=== PATIENT | male | born 1995 | race Caucasian/White ===

== ENCOUNTER → 2023-12-07 | Outpatient (CLI) | payer OTHER | LOC: M LAB 11:21 | PROVIDERS: ATTEND Nurse Practitioner Family | DX: K59.00 Constipation, unspecified (principal) ==

== ENCOUNTER 2024-02-24 09:50 | Day surgery (SDC) | payer OTHER ==
[~2024-02-24] VITALS: Ht 185.4 cm; Wt 97.1 kg
[2024-02-24] MEDS ORDERED: propofoL 200 MG/20 ML VIAL As Ordered ONE (11:04)
[2024-02-24 11:28] VITALS: TEMP 97.6
[2024-02-24 11:45] VITALS: BP 119/72; O2SAT 98
== END 2024-02-24 11:48 | disposition home or self-care (01) ==
LOC: M OPP 09:50
PROVIDERS: ATTEND Internal Medicine Gastroenterology
DX: K58.1 Irritable bowel syndrome with constipation (principal); Z12.11 Encounter for screening for malignant neoplasm of colon

== ENCOUNTER 2024-03-02 09:37 | Day surgery (SDC) | payer OTHER ==
[~2024-03-02] VITALS: Ht 185.4 cm; Wt 97.3 kg
[2024-03-02] MEDS ORDERED: propofoL 200 MG/20 ML VIAL As Ordered ONE (10:37)
[2024-03-02] MEDS ORDERED: LIDOCAINE 2% 100MG/5ML SDV (FOR ANES.) As Ordered ONE (10:37)
[2024-03-02 11:24] VITALS: TEMP 97.6
[2024-03-02 11:47] VITALS: BP 117/59; O2SAT 100
== END 2024-03-02 11:49 | disposition home or self-care (01) ==
LOC: M OPP 09:37
PROVIDERS: ATTEND Internal Medicine Gastroenterology
DX: Q43.8 Other specified congenital malformations of intestine (principal); K59.00 Constipation, unspecified; Z79.899 Other long term (current) drug therapy